=== PATIENT | female | born 1985 | race African-American/Black ===

== ENCOUNTER → 2018-01-06 19:15 | Outpatient (CLI) | payer OTHER ==
[~2018-01-06 19:15] MED LIST: ACETAMINOPHEN325 MG PO; ESTER-C 500 MG1 TAB PO; PRENATAL COMPLE1 TAB PO
[2018-01-06 20:18] LABS: BASOPHILS 0.2 % (0-2); EOSINOPHILS 0.9 % (0-7); HEMATOCRIT 31.1 % (36.0-48.0); IMMATURE GRANULOCYTES 0.8 % (0-5); MCH 23.5 pg (26.0-34.0); MCHC 32.2 g/dL (31.0-37.0); MEAN PLATELET VOLUME 9.5 fL (7.4-10.4); MONOCYTES 9.8 % (2-11); NEUTROPHILS 66.3 % (40-80); PLATELET COUNT 335 10x3/uL (130-400); RBC 4.26 10x6/uL (4.00-5.40); RDW 14.7 % (11.5-14.5); WBC 16.9 10x3/uL (4.8-10.8)
[2018-01-06 20:22] LABS: APPEARANCE CLEAR (CLEAR); BILIRUBIN NEGATIVE (NEGATIVE); COLOR YELLOW (YELLOW); GLUCOSE NEGATIVE (NEGATIVE); KETONE NEGATIVE (NEGATIVE); NITRITE NEGATIVE (NEGATIVE); PROTEIN NEGATIVE (NEGATIVE); SPECIFIC GRAVITY 1.015 (1.005-1.020); UROBILINOGEN NORMAL (NORMAL)
[2018-01-06 20:28] LABS: UDS - AMPHET NEGATIVE QUAL (NEGATIVE); UDS - BARB NEGATIVE QUAL (NEGATIVE); UDS - BENZO NEGATIVE QUAL (NEGATIVE); UDS - COCAINE NEGATIVE QUAL (NEGATIVE); UDS - OPIATE NEGATIVE QUAL (NEGATIVE); UDS - PCP NEGATIVE QUAL (NEGATIVE); UDS - THC NEGATIVE QUAL (NEGATIVE)
[2018-01-06 20:36] LABS: ALBUMIN 2.9 g/dL (3.4-5.0); ALKALINE PHOSPHATASE 72 U/L (46-116); ALT (SGPT) 17 U/L (10-68); BILIRUBIN - TOTAL 0.09 mg/dL (0.2-1.3); CALC OSMOLALITY 268 mosm/kg (275-300); CALCIUM 9.5 mg/dL (8.5-10.1); CARBON DIOXIDE 25.3 mmol/L (21.0-32.0); CHLORIDE - SERUM 102 mmol/L (98-107); CREATININE - SERUM 0.7 mg/dL (0.6-1.3); GLUCOSE 81 mg/dL (74-106); PROTEIN - SERUM 6.9 g/dL (6.4-8.2); SODIUM 136 mmol/L (136-145); UREA NITROGEN 7 mg/dL (7-18); eGFR NON AFRICAN AMERICAN > 90 mL/min (90-120)
[2018-01-06 21:05] LABS: HIV 1 & 2- RAPID SCREEN NEGATIVE (NEGATIVE)
[2018-01-06 23:41] LABS: T4 THYROXINE 12.3 ug/dL (4.7-13.3); THYROID STIMULATING HORMONE 1.88 uIU/mL (0.36-3.74)
[2018-01-08 07:26] LABS: RAPID PLASMA REAGIN Non Reactive (Non Reactive)
[2018-01-08 12:14] LABS: RUBELLA IGG 1.71 index (Immune >0.99)
[2018-01-08 14:21] LABS: HEPATITIS C ANTIBODY <0.1 (0.0-0.9)
[2018-01-10 22:15] LABS: CHLAMYDIA TRACHOMATIS, NAA Negative (Negative)
== END | disposition home or self-care (01) ==
LOC: D.LDO 19:15
PROVIDERS: Obstetrics & Gynecology
DX: O26.892 Other specified pregnancy related conditions, second trimester (principal); Z3A.23 23 weeks gestation of pregnancy

== ENCOUNTER → 2018-01-13 15:31 | Outpatient (CLI) | payer OTHER ==
[2018-01-13 15:59] LABS: APPEARANCE CLEAR (CLEAR); BILIRUBIN NEGATIVE (NEGATIVE); COLOR YELLOW (YELLOW); GLUCOSE NEGATIVE (NEGATIVE); KETONE NEGATIVE (NEGATIVE); NITRITE NEGATIVE (NEGATIVE); PROTEIN NEGATIVE (NEGATIVE); SPECIFIC GRAVITY 1.015 (1.005-1.020); UROBILINOGEN NORMAL (NORMAL)
== END | disposition home or self-care (01) ==
LOC: D.LDO 15:31
PROVIDERS: Obstetrics & Gynecology
DX: O26.892 Other specified pregnancy related conditions, second trimester (principal); Z3A.24 24 weeks gestation of pregnancy